=== PATIENT | female | born 1995 | race Caucasian/White ===

== ENCOUNTER 2024-08-01 08:58 | Emergency (ER) | payer OTHER, SELFPAY ==
[2024-08-01 09:04] VITALS: BP 125/86
--- NOTE | 2024-08-01 09:30 | ED.GENMED ---
History of Present Illness
<Aria Ma PA-C - Last Filed: 08/01/24 11:37>
General
Chief Complaint: Chest Pain
Source: patient
Exam Limitations: none
Time Seen by Provider: 08/01/24 09:11
Nursing documentation reviewed up to this point in time: agreed with
History of Present Illness
History of Present Illness:
28-year-old female presenting to the emergency department for evaluation of midsternal chest pain. Patient states she notices pain initially around 7 PM last night when she was doing dishes. She describes it as a pressure type sensation in her mid
sternum which was severe for 1 to 2 hours. Patient states that she woke up this morning pain is persistent, although more dull. She did have some radiation to her left scapula. No associated shortness of breath, nausea/vomiting, dizziness,
numbness/tingling. No cough or fever. No other URI symptoms. No notable exertional reported component to pain.
Patient did eat dinner about 1 hour prior to onset of symptoms last night and was wanting to make acid reflux although states it feels very different than prior episodes of acid reflux
No recent travel or recent surgeries. No family history of blood clots or clotting disorders. No exogenous estrogen use.
Past History
<Aria Ma PA-C - Last Filed: 08/01/24 11:37>
Past History
ED Past Medical History: None
ED Past Surgical History: None
Social History
Tobacco: Non-smoker
Alcohol: None
Drug: None
Personal: Single
Review of Systems
<Aria Ma PA-C - Last Filed: 08/01/24 11:37>
Review of Systems
Allergies reviewed?: Yes
All Other Systems: ROS reviewed and negative except as documented in HPI and ROS
Phy Exam
<Aria Ma PA-C - Last Filed: 08/01/24 11:37>
Physical Exam
Physical Exam:
Vitals: Patient's vital signs are stable. Afebrile
General: Patient is alert, in no apparent distress.
Skin: Warm and dry, no rashes or lesions
Head: Normocephalic, atraumatic
Eyes: Sclera nonicteric. EOMs intact. No nystagmus.
Throat: Protecting airway
Neck: Normal ROM, no cervical spine tenderness, no meningismus
Cardiac: Regular rate and rhythm, no murmurs. No reproducible chest wall tenderness. No rash
Pulm: Normal respiratory effort, no wheezes, rales, rhonchi heard on exam. O2 saturation 98 on room air
Abdomen: No abdominal tenderness.
Extremities: No evidence of cyanosis or edema. Negative Homans' sign bilateral
Neuro: AAOx3. Grossly intact.
Psychiatric: Normal affect.
Scores
<Aria Ma PA-C - Last Filed: 08/01/24 11:37>
Heart Score for Chest Pain Patients
STEMI patient?: No
History: Slightly or Non-Suspicious
ECG: Normal
Age: </= 45 years
Risk Factors: No Risk Factors
Troponin: </= Normal Limit
Heart Score for Chest Pain Patients: 0
Heart Score Risk: 2.5% MACE over next 6 weeks
Course
<Aria Ma PA-C - Last Filed: 08/01/24 11:37>
Orders/Labs/Results
Orders:
Orders
08/01/24 08:58
Electrocardiogram (*1) Urgent
Reason for Study: Chest Pain
EKG- Treatment ONCE
08/01/24 09:28
Ketorolac [Toradol] 15 mg IV NOW STA
Pantoprazole [Protonix IV] 40 mg IV NOW STA
08/01/24 09:37
CR Chest - 2 Views Urgent
Comment:
Reason For Exam: midsternal chest pain
08/01/24 09:49
Complete Blood Count/With Diff Urgent
D-Dimer Urgent
08/01/24 10:50
Comprehensive Metabolic Panel Urgent
Troponin I Urgent
Abnormal Lab Results
08/01/24
09:49
RBC 4.15 L 10^6/uL
(4.20-5.40)
Hct 35.9 L %
(37.0-47.0)
MPV 10.5 H fL
(7.4-10.4)
08/01/24 09:49
08/01/24 10:50
Vital Signs
Blood pressure: 116/68
Initial and Last Documented VS:
Initial Vital Signs
Temp Pulse Resp BP Pulse Ox
98.0 F 90 16 125/86 98
08/01/24 09:04 08/01/24 09:04 08/01/24 09:04 08/01/24 09:04 08/01/24 09:04
Last Documented Vital Signs
Temp Pulse Resp BP Pulse Ox
98.0 F 53 18 116/68 97
08/01/24 09:04 08/01/24 10:43 08/01/24 10:43 08/01/24 11:32 08/01/24 10:43
<Doroteo Browning MD - Last Filed: 08/01/24 10:53>
Orders/Labs/Results
Orders:
Orders
08/01/24 08:58
Electrocardiogram (*1) Urgent
Reason for Study: Chest Pain
EKG- Treatment ONCE
08/01/24 09:28
Ketorolac [Toradol] 15 mg IV NOW STA
Pantoprazole [Protonix IV] 40 mg IV NOW STA
08/01/24 09:37
CR Chest - 2 Views Urgent
Comment:
Reason For Exam: midsternal chest pain
08/01/24 09:49
Complete Blood Count/With Diff Urgent
D-Dimer Urgent
08/01/24 10:50
Comprehensive Metabolic Panel Urgent
Troponin I Urgent
Abnormal Lab Results
08/01/24
09:49
RBC 4.15 L 10^6/uL
(4.20-5.40)
Hct 35.9 L %
(37.0-47.0)
MPV 10.5 H fL
(7.4-10.4)
08/01/24 09:49
08/01/24 10:50
Vital Signs
Initial and Last Documented VS:
Initial Vital Signs
Temp Pulse Resp BP Pulse Ox
98.0 F 90 16 125/86 98
08/01/24 09:04 08/01/24 09:04 08/01/24 09:04 08/01/24 09:04 08/01/24 09:04
Last Documented Vital Signs
Temp Pulse Resp BP Pulse Ox
98.0 F 53 18 116/68 97
08/01/24 09:04 08/01/24 10:43 08/01/24 10:43 08/01/24 11:32 08/01/24 10:43
<Aria Ma PA-C - Last Filed: 08/01/24 11:37>
MDM/Problems Addressed
Differential Diagnosis Includes:
Not limited to: Costochondritis, pleurisy, GERD, pericarditis, myocarditis, pneumonia, PE, etc.
MDM/Problems Addressed:
28-year-old female presenting with chest pain since last night with some left scapular pain noted this morning. No shortness of breath, fever, cough. No lower pain. No PE risk factors. Patient is stable vital signs. Physical exam as above.
Heart regular rate and rhythm. Lungs are clear bilaterally. No reproducible chest wall tenderness. No lower extremity edema. Differential considerations include costochondritis, pleurisy, GERD, etc. patient PERC negative. Low suspicion for ACS
or PE. EKG without acute ischemic changes. Will obtain basic lab work, troponin. Will send screening D-dimer to rule out PE. Chest x-ray. Will closely monitor and reassess.
Chronic conditions affecting care:
N/A
Acute Exacerbation and/or Progression of Chronic Illness:
N/A
<Aria Ma PA-C - Last Filed: 08/01/24 11:37>
*Radiology
Radiology exam reviewed: preliminary read by ED provider (Chest x-ray reviewed by ia-no acute disease) and radiology read reviewed
*Pulse Oximetry
Patient hypoxic: no
*EKG
Interpreted by ED Provider?: Yes
EKG Intrepretation Date: 08/01/24
Interpretation: normal
Comparison EKG: no comparison EKG present
Heart Rate: 68
Rate: normal
Rhythm: sinus and sinus arrhythmia
[place]: normal axis
Interval: normal QT interval
QRS Pattern: normal QRS
Ischemia: no ischemia
*[employer] Interpretation
Rate: normal
Interpretation: normal
Heart Rate: 68
Rhythm: sinus
*Critical Care Note
Total Time (30-74mins, 75-104mins- exclusive of procedures): Not Applicable
<Aria Ma PA-C - Last Filed: 08/01/24 11:37>
Update Note
Update Note:
Update 10:43 AM: CBC without clinically significant abnormalities. Fortunately D-dimer is negative. Patient also PERC negative. Very low suspicion for PE. Chest x-ray without acute disease. Chemistry and troponin pending. Into reassess patient
at bedside. Symptoms essentially resolved. Ultimately�suspect musculoskeletal etiology. Anticipate discharge pending remaining lab results/troponin.
Update 11:25 PM: Chemistry unremarkable. Troponin undetectable. Given symptoms been ongoing since yesterday evening feel this admission to rule out LA. Patient remains essentially asymptomatic with normal vital signs. Very low suspicion for
acute cardiac/pulmonary emergency. Symptoms likely rated to GERD versus muscular strain. Will provide prescription for PPI recommend primary care follow-up. Return precautions discussed.
ED Attending Note
<Aria Ma PA-C - Last Filed: 08/01/24 11:37>
-
Portions of this chart may have been created with voice recognition software.� Occasional wrong word or��sound alike� substitutions may have occurred due to the inherent limitations of voice recognition software.
<Doroteo Browning MD - Last Filed: 08/01/24 10:53>
ED Attending Note
Patient seen and examined by attending physician: Yes
ED Attending Note:
I have seen and evaluated the patient with a [id number] encounter. I have spoken to the advance practicer provider and involved in the medical history, the physical exam, medical decision making.
Evaluation and management service: agree unless noted differently below.
Results interpretation: agree unless noted differently below.
Focused HPI: 28-year-old female with no reported chronic medical issues�notably no longer on OCPs she tells ana paula presents to the ER for evaluation of chest pain. She reports symptoms started yesterday evening when she was doing the dishes around
6 or 7 PM. She says that they were rather intense for about 2 hours and then they eased up but never resolved and continued this morning; she said she was also having some pain in the left scapula and so she decided to come to the ER to be
evaluated. She denies any associated shortness of breath. No nausea, vomiting, diaphoresis. No abdominal pain. Denies any recent cough, fevers, chills. No leg pain or swelling. No personal or family history of early cardiac issues.
Physical exam: Awake alert no distress. Vital signs normal. She has no cardiac rubs gallops or murmurs. Lungs clear to auscultation bilaterally. She has no edema in her legs and good pulses in all extremities. Abdomen nontender.
Medical Decision Makin-year-old female presents for evaluation of atypical chest pain that started yesterday evening and has been consistent. Vitals and exam as above. EKG shows sinus rhythm no ischemic changes. She had labs sent off
including a CBC and a CMP which were unremarkable. Troponin undetectable. D-dimer negative. Chest x-ray shows no acute disease. Low suspicion for emergent cause of chest pain could be GERD or costochondritis--would lean towards GERD given they
started after dinner while she was doing the dishes. Reasonable to trial PPI. Follow-up with PCP.
Discharge Plan
Departure
Patient Disposition: Home (Routine Discharge)
Date of Disposition: 08/01/24
Time of Disposition: :25
Patient with high blood pressure during this ER visit?: No
Condition: Good
Covid-19: Not Applicable
Discharge Problem:
Chest pain
Instructions: Chest Pain PCP Follow Up
Prescriptions:
New
pantoprazole 40 mg tablet,delayed release (DR/EC)
40 mg PO DAILY Qty: 30 0RF
No Action
Control Pills
1 tab PO DAILY
Referrals:
Martell Kelley MD [Family Provider] -
Activity Restrictions/Additional Instructions:
RETURN TO THE EMERGENCY DEPARTMENT WITH ANY CHEST PAIN, SHORTNESS OF BREATH, DIZZINESS/LIGHTHEADEDNESS, WORSENING IN CURRENT SYMPTOMS, OR ANY OTHER CONCERNS
-You came to the emergency department today for evaluation of chest pain. Is possible that this is related to acid reflux or possibly muscular strain.
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 Take this as directed
-Follow-up with primary care for further evaluation/management. You can continue to take Motrin as needed for any
Monitor your symptoms closely and return to the emergency department with any acute worsening/new symptoms or any other concern
Interventions
Interventions:
*Risk Screen - Suicide Last Done: 08/01/24 09:04
*Neglect/Abuse Screening Last Done: 08/01/24 09:04
ED- Fall Risk Assessment Last Done: 08/01/24 10:44
ED- Cardiac Assessment Last Done: 08/01/24 10:44
Discharge Date and Time
Print Language: CZECH
[2024-08-01] MEDS: PROTONIX IV 40 MG IV (09:34)
[2024-08-01] MEDS: TORADOL 15 MG IV (09:35)
[2024-08-01 09:41] VITALS: BP 123/89
[2024-08-01 10:12] LABS: % Basophils 0.6 % (0-2); % Eosinophils 2.5 % (0-6); % Immature Granulocytes 0.3 % (0-0.5); % Lymphocytes 44.9 % (20.5-51.1); % Monocytes 8.9 % (1.7-9.3); % Neutrophils 42.8 % (42.2-75.2); Absolute Eosinophils 0.2 10^3/uL (0-0.7); Absolute Lymphocytes 2.9 10^3/uL (1.2-3.4); Absolute Monocytes 0.6 10^3/uL (0.1-0.6); Absolute Neutrophils 2.8 10^3/uL (1.4-6.5); Hematocrit 35.9 % (37.0-47.0); Hemoglobin 12.7 g/dL (12.0-16.0); Mean Corp Hgb Conc. 35.4 g/dL (33.0-37.0); Mean Corpuscular Hgb 30.6 pg (27.0-31.0); Mean Corpuscular Volume 86.5 fL (81.0-99.0); Mean Platelet Volume 10.5 fL (7.4-10.4); Nucleated Red Blood Cells % 0 %; Platelet Count 211 10^3/uL (130-400); Red Blood Cell Count 4.15 10^6/uL (4.20-5.40); Red Cell Dist. Width 11.7 % (11.5-14.5); White Blood Cell Count 6.5 10^3/uL (4.8-10.8)
[2024-08-01 10:32] LABS: D-Dimer < 0.27 ug/mlFEU (0.00-0.50)
[2024-08-01 10:43] VITALS: BP 107/71
[2024-08-01 11:12] LABS: ALT (SGPT) 12 U/L (0-35); AST (SGOT) 22 U/L (14-36); Albumin 4.3 g/dl (3.5-5.0); Alkaline Phosphatase 49 U/L (38-126); Blood Urea Nitrogen 16 mg/dl (7-17); Calcium 9.6 mg/dl (8.4-10.2); Carbon Dioxide 30 mmol/L (22-30); Chloride 102 mmol/L (98-107); Glucose 91 mg/dl (70-99); Potassium 4.3 mmol/L (3.5-5.1); Sodium 138 mmol/L (135-145); Total Bilirubin 1.1 mg/dl (0.2-1.3); Total Protein 6.7 g/dl (6.3-8.2); eGFR > 60.00
[2024-08-01 11:23] LABS: Troponin I < 0.012 ng/ml
[2024-08-01 11:30] VITALS: BP 116/68
== END 2024-08-01 12:00 | disposition home or self-care (01) ==
LOC: EMR 08:58
PROVIDERS: Physician Assistant; EMERGENCY PHYSICIAN Emergency Medicine; FAMILY PHYSICIAN Family Medicine
DX: R07.89 Other chest pain (principal)
CPT/HCPCS: 99285; 96374; 96375; 71046; 80053; 84484; 85025; 85379; 93005